=== PATIENT | female | born 1995 | race Two or more races ===

== ENCOUNTER 2018-12-09 03:51 | Inpatient (IN) ==
[2018-12-09] MEDS ORDERED: LACTATED RINGERS 1,000 ML IV SCH (04:30)
[2018-12-09] MEDS ORDERED: LACTATED RINGERS 500 ML IV PRN (05:13)
[2018-12-09] MEDS ORDERED: ONDANSETRON 4 MG/2 ML VIAL IV PRN (05:13)
[2018-12-09] MEDS ORDERED: MEPERIDINE 50 MG/1 ML VIAL IV PRN (05:13)
[2018-12-09] MEDS: LACTATED RINGERS 1,000 ML IV SCH ×2 (05:34→12:35)
[2018-12-09] MEDS: BUTORPHANOL 2 MG/ML VIAL IV PRN ×2 (05:35→10:05)
[2018-12-09 05:43] LABS: Basophils % 0.2 % (0.0-0.8); Eosinophils # 0.1 10*3/uL (0.0-0.87); Eosinophils % 0.5 % (0.00-10.9); Hematocrit 34.5 VOL% (35.7-47.0); Hemoglobin 12.1 GM/DL (12.0-16.0); Immature Granulocytes % 0.6 %; Immature Granulocytes Absolute 0.08 #; Lymphocytes # 1.5 10*3/uL (1.4-4.0); Mean Corpuscular HGB Conc 35.1 GM/DL (32-36); Mean Corpuscular Volume 91.3 FL (87-102); Mean Platelet Volume 9.2 FL (9.6-12.0); Monocytes % 7.5 % (1.7-12.7); Neutrophils % 79.2 % (38.7-73.9); Platelet Count 211 T/CUMM (130-400); Red Blood Count 3.78 MC/CUMM (3.8-5.5); Red Cell Distribution Width 12.4 % (9.3-17.3); White Blood Count 12.4 T/CUMM (4-12)
[2018-12-09 06:08] LABS: Albumin 2.7 G/DL (3.4-5.0); Bilirubin,Total 0.4 MG/DL (0.2-1.0); Calcium 8.6 MG/DL (8.5-10.1); Osmolality,Calculated 274.4 MOS/KG (273-304); Total Protein 6.7 G/DL (6.4-8.3)
[2018-12-09] MEDS ORDERED: OXYTOCIN/LR 0 UNIT/0 ML BAG IV ONE (09:40)
[2018-12-09] MEDS ORDERED: OXYTOCIN/LR 20 UNIT/1,000 ML BAG IV SCH (10:00)
[2018-12-09] MEDS ORDERED: NALOXONE 0.4 MG/ML VIAL IV PRN (10:09)
[2018-12-09] MEDS ORDERED: PROMETHAZINE 25 MG/1 ML VIAL IM PRN (10:09)
[2018-12-09] MEDS ORDERED: ePHEDrine 50 MG/ML AMP IV PRN (10:09)
[2018-12-09] MEDS ORDERED: FAMOTIDINE 20 MG/2 ML VIAL IV ONE (10:09)
[2018-12-09] MEDS ORDERED: hydrOXYzine HCL 25 MG/1 ML VIAL IM PRN (10:09)
[2018-12-09] MEDS ORDERED: diphenhydrAMINE 50 MG/1 ML VIAL IV PRN (10:09)
[2018-12-09] MEDS ORDERED: CITRIC ACID/SODIUM CITRATE 30 ML UDCUP PO ONE (10:09)
[2018-12-09] MEDS ORDERED: fentaNYL 2 MCG/ROPIV 0.2% EPID 100 ML EPIDURAL SCH (10:30)
[2018-12-09] MEDS ORDERED: miSOPROStol 200 MCG TABLET ONE (16:03)
[2018-12-09] MEDS ORDERED: OXYTOCIN/LR 20 UNIT/1,000 ML BAG IV ONE (16:03)
[2018-12-09] MEDS ORDERED: TRANEXAMIC ACID 1,000 MG/10 ML VIAL ONE (16:03)
[2018-12-09] MEDS ORDERED: CARBOPROST TROMETHAMINE 250 MCG/ML AMP IM ONE (16:04)
[2018-12-09] MEDS ORDERED: METHYLERGONOVINE 0.2 MG/1 ML AMP ONE (16:04)
[2018-12-09] MEDS ORDERED: BENZOCAINE 20%/MENTHOL 0.5% SPRAY 56 GM CAN TOP PRN (21:04)
[2018-12-09] MEDS ORDERED: HYDROCORTISONE 2.5% RECTAL CREAM 30 GM TUBE TOP PRN (21:04)
[2018-12-09] MEDS ORDERED: DIPH/TET/ACEL PERT BOOSTER VACCINE 0.5 ML VIAL IM ONE (21:04)
[2018-12-09] MEDS ORDERED: BISACODYL 10 MG SUPP RECTAL PRN (21:04)
[2018-12-09] MEDS ORDERED: MEASLES/MUMPS/RUBELLA VACCINE 0.5 ML VIAL SUBCUT ONE (21:04)
[2018-12-09] MEDS ORDERED: ACETAMINOPHEN 325 MG TABLET PO SCH (21:04)
[2018-12-09] MEDS ORDERED: WITCH HAZEL PADS 100/JAR TOP PRN (21:04)
[2018-12-09] MEDS ORDERED: RHO(D) IMMUNE GLOBULIN 300 MCG SYRINGE IM ONE (21:04)
[2018-12-09] MEDS ORDERED: LANOLIN 50% CREAM 0.3 OZ TUBE TOP PRN (21:04)
[2018-12-10] MEDS: ACETAMINOPHEN 500 MG TABLET PO SCH ×3 (03:52→18:33)
[2018-12-10] MEDS: IBUPROFEN 800 MG TABLET PO SCH ×3 (03:52→21:36)
[2018-12-10 06:16] LABS: Basophils % 0.3 % (0.0-0.8); Eosinophils # 0.1 10*3/uL (0.0-0.87); Eosinophils % 0.4 % (0.00-10.9); Hematocrit 34.1 VOL% (35.7-47.0); Hemoglobin 11.7 GM/DL (12.0-16.0); Immature Granulocytes % 0.7 %; Immature Granulocytes Absolute 0.11 #; Lymphocytes # 1.7 10*3/uL (1.4-4.0); Lymphocytes % 11.1 % (21.3-54.2); Mean Corpuscular HGB Conc 34.3 GM/DL (32-36); Mean Corpuscular Volume 92.2 FL (87-102); Mean Platelet Volume 9.2 FL (9.6-12.0); Monocytes % 6.8 % (1.7-12.7); Neutrophils % 80.7 % (38.7-73.9); Platelet Count 182 T/CUMM (130-400); Red Cell Distribution Width 12.3 % (9.3-17.3); White Blood Count 15.5 T/CUMM (4-12)
[2018-12-10] MEDS: DOCUSATE SODIUM 100 MG CAPSULE PO SCH ×2 (09:09→21:36)
[2018-12-11] MEDS: ACETAMINOPHEN 500 MG TABLET PO SCH ×3 (00:40→09:39)
[2018-12-11] MEDS: IBUPROFEN 800 MG TABLET PO SCH (05:32)
[2018-12-11 09:12] VITALS: BP 123/68
[2018-12-11] MEDS: DOCUSATE SODIUM 100 MG CAPSULE PO SCH (09:39)
== END 2018-12-11 11:50 | disposition home or self-care (01) | DRG 807 ==
LOC: N.LDOUT 03:51 → N.LD 03:52 → N.OB 21:04
PROVIDERS: ADMIT Obstetrics & Gynecology; ATTEND Obstetrics & Gynecology

== ENCOUNTER 2020-09-11 01:24 | Inpatient (IN) ==
[2020-09-11] MEDS ORDERED: OXYTOCIN/LR 20 UNIT/1,000 ML BAG IV PRN (01:42)
[2020-09-11] MEDS ORDERED: BUTORPHANOL 1 MG/ML VIAL IV PRN (01:42)
[2020-09-11] MEDS ORDERED: ONDANSETRON 4 MG/2 ML VIAL IV PRN (01:42)
[2020-09-11 01:58] LABS: Basophils % 0.2 % (0.0-0.8); Eosinophils # 0.1 10*3/uL (0.0-0.87); Eosinophils % 0.7 % (0.00-10.9); Hematocrit 33.8 VOL% (35.7-47.0); Hemoglobin 11.8 GM/DL (12.0-16.0); Immature Granulocytes % 0.6 %; Immature Granulocytes Absolute 0.05 #; Lymphocytes % 22.5 % (21.3-54.2); Mean Corpuscular HGB Conc 34.9 GM/DL (32-36); Mean Corpuscular Volume 90.4 FL (87-102); Mean Platelet Volume 9.4 FL (9.6-12.0); Monocytes % 8.6 % (1.7-12.7); Neutrophils % 67.4 % (38.7-73.9); Platelet Count 224 T/CUMM (130-400); Red Blood Count 3.74 MC/CUMM (3.8-5.5); Red Cell Distribution Width 13.2 % (9.3-17.3); White Blood Count 8.8 T/CUMM (4-12)
[2020-09-11] MEDS: LACTATED RINGERS 1,000 ML IV SCH ×2 (02:01→06:25)
[2020-09-11 02:16] LABS: Bilirubin,Total 0.4 MG/DL (0.2-1.0); Calcium 8.8 MG/DL (8.5-10.1); Osmolality,Calculated 263.2 MOS/KG (273-304); Potassium 4.1 MMOL/L (3.5-5.1); Total Protein 7.4 G/DL (6.4-8.2)
[2020-09-11] MEDS ORDERED: AMPICILLIN INJ 2,000 MG in SODIUM CHLORIDE 0.9% 100 ML IV ONE (03:12)
[2020-09-11] MEDS ORDERED: hydrOXYzine HCL 25 MG/1 ML VIAL IM PRN (04:49)
[2020-09-11] MEDS ORDERED: ePHEDrine 50 MG/ML VIAL IV PRN (04:49)
[2020-09-11] MEDS ORDERED: PROMETHAZINE 25 MG/1 ML VIAL IM PRN (04:49)
[2020-09-11] MEDS ORDERED: NALOXONE 0.4 MG/ML VIAL IV PRN (04:49)
[2020-09-11] MEDS ORDERED: fentaNYL 2 MCG/ROPIV 0.2% EPID 100 ML EPIDURAL PRN (04:49)
[2020-09-11] MEDS ORDERED: diphenhydrAMINE 50 MG/1 ML VIAL IV PRN ×2 (04:49)
[2020-09-11] MEDS ORDERED: CITRIC ACID/SODIUM CITRATE 30 ML UDCUP PO PRN (04:51)
[2020-09-11] MEDS ORDERED: FAMOTIDINE 20 MG/2 ML VIAL IV PRN (04:51)
[2020-09-11] MEDS ORDERED: TRANEXAMIC ACID 1,000 MG/10 ML VIAL ONE (08:33)
[2020-09-11] MEDS ORDERED: miSOPROStoL 200 MCG TABLET ONE (08:33)
[2020-09-11] MEDS ORDERED: METHYLERGONOVINE 0.2 MG/1 ML AMP ONE (08:34)
[2020-09-11] MEDS ORDERED: CARBOPROST TROMETHAMINE 250 MCG/ML AMP IM ONE (08:34)
[2020-09-11 10:44] LABS: Cord Venous Blood HCO3 21.7 MMOL/L; Cord Venous Blood PCO2 44.6 MMHG
[2020-09-11] MEDS ORDERED: WITCH HAZEL PADS 100/JAR TOP PRN (13:18)
[2020-09-11] MEDS ORDERED: ACETAMINOPHEN 325 MG TABLET PO PRN (13:18)
[2020-09-11] MEDS ORDERED: HYDROCORTISONE 2.5% RECTAL CREAM 30 GM TUBE TOP PRN (13:18)
[2020-09-11] MEDS ORDERED: MEASLES/MUMPS/RUBELLA VACCINE 0.5 ML VIAL SUBCUT ONE (13:18)
[2020-09-11] MEDS ORDERED: oxyCODONE/ACETAMINOPHEN 5-325 MG TABLET PO PRN (13:18)
[2020-09-11] MEDS ORDERED: RHO(D) IMMUNE GLOBULIN 300 MCG SYRINGE IM ONE (13:18)
[2020-09-11] MEDS ORDERED: DIPH/TET/ACEL PERT BOOSTER VACCINE 0.5 ML VIAL IM ONE (13:18)
[2020-09-11] MEDS ORDERED: OXYTOCIN/LR 20 UNIT/1,000 ML BAG IV ONE (13:18)
[2020-09-11] MEDS ORDERED: BISACODYL 10 MG SUPP RECTAL PRN (13:18)
[2020-09-11] MEDS ORDERED: BENZOCAINE 20%/MENTHOL 0.5% SPRAY 56 GM CAN TOP PRN (13:18)
[2020-09-11] MEDS ORDERED: LANOLIN 50% CREAM 0.3 OZ TUBE TOP PRN (13:18)
[2020-09-11 15:46] LABS: HIV Antigen/Antibody Result Nonreactive (Nonreactive); Hepatitis B Surface Ag Quant < 0.10 Index; Hepatitis B Surface Ag Result Non-Reactive (NonReactive); Hepatitis C Virus Ab Quant 0.03 Index; Hepatitis C Virus Ab Result Non-Reactive (NonReactive)
[2020-09-11] MEDS: IBUPROFEN 800 MG TABLET PO PRN ×2 (17:08→23:51)
[2020-09-11] MEDS: DOCUSATE SODIUM 100 MG CAPSULE PO SCH (21:09)
[2020-09-11] MEDS: oxyCODONE/ACETAMINOPHEN 5-325 MG TABLET PO PRN (21:09)
[2020-09-12] MEDS: oxyCODONE/ACETAMINOPHEN 5-325 MG TABLET PO PRN (04:13)
[2020-09-12 06:13] LABS: Basophils % 0.2 % (0.0-0.8); Eosinophils # 0.1 10*3/uL (0.0-0.87); Hemoglobin 11.8 GM/DL (12.0-16.0); Immature Granulocytes % 0.6 %; Immature Granulocytes Absolute 0.08 #; Lymphocytes # 2.8 10*3/uL (1.4-4.0); Lymphocytes % 21.6 % (21.3-54.2); Mean Corpuscular HGB Conc 35.8 GM/DL (32-36); Mean Corpuscular Volume 89.9 FL (87-102); Mean Platelet Volume 9.5 FL (9.6-12.0); Monocytes % 7.8 % (1.7-12.7); Neutrophils % 68.8 % (38.7-73.9); Platelet Count 198 T/CUMM (130-400); Red Blood Count 3.67 MC/CUMM (3.8-5.5); Red Cell Distribution Width 13.3 % (9.3-17.3); White Blood Count 13.1 T/CUMM (4-12)
[2020-09-12] MEDS: IBUPROFEN 800 MG TABLET PO PRN ×3 (08:54→21:13)
[2020-09-12] MEDS: DOCUSATE SODIUM 100 MG CAPSULE PO SCH ×2 (08:54→21:13)
[2020-09-13] MEDS: IBUPROFEN 800 MG TABLET PO PRN (04:18)
[2020-09-13 08:14] VITALS: BP 124/83
[2020-09-13] MEDS: DOCUSATE SODIUM 100 MG CAPSULE PO SCH (09:33)
== END 2020-09-13 12:40 | disposition home or self-care (01) | DRG 805 ==
LOC: N.LD 01:24
PROVIDERS: ADMIT Obstetrics & Gynecology; ATTEND Obstetrics & Gynecology